=== PATIENT | male | born 1985 | race Caucasian/White ===

== ENCOUNTER 2016-10-19 23:36 | Emergency (ER) | payer OTHER ==
[~2016-10-19] VITALS: Ht 182.9 cm; Wt 122.5 kg
[~2016-10-19 23:36] MED LIST: CEPH500C2 PO; SULF1TAB48 PO
--- NOTE | 2016-10-20 | NUR ---
31 YO MALE BB SELF. PT IS ALERT X 3, PT STATES HE HAS BEEN HVAING BILATERAL LEG SWELLING X 1 MONTH WITH A RASH ON HIS LEFT LEG X 1 MONTH. PT AMBULATED TO ER BED, SKN WARM AND DRY, RR EVEN AND UNLABORED. AWAITING ORDERS FROM PROVIDER, WILL CONTNUE TO MONITOR
[2016-10-20] MEDS ORDERED: FUROSEMIDE 40 MG TABLET ONE (01:16)
[2016-10-20] MEDS ORDERED: SULFAMETH/TRIMETH 800/160 MG 1 UDTAB TABLET PO ONE ×2 (01:16→01:30)
[2016-10-20] MEDS ORDERED: FUROSEMIDE 40 MG TABLET PO ONE (01:30)
[2016-10-20 01:34] LABS: BASOPHILS % (AUTO) 0.5 % (0.0-2.0); EOSINOPHILS # (AUTO) 0.4 /CMM (0.0-0.7); EOSINOPHILS % (AUTO) 4.4 % (0.0-6.0); HEMATOCRIT 38 % (39-51); HEMOGLOBIN 12.9 g/dL (13.5-17.5); LYMPHOCYTES # (AUTO) 3.9 /CMM (0.8-4.8); LYMPHOCYTES % (AUTO) 41.1 % (20.0-44.0); MEAN CORPUSCULAR HEMOGLOBIN 29 PG (26.0-33.0); MEAN CORPUSCULAR HGB CONC 34 g/dl (31.0-36.0); MEAN CORPUSCULAR VOLUME 86 fL (80-96); MONOCYTES # (AUTO) 0.6 /CMM (0.1-1.30); MONOCYTES % (AUTO) 6.5 % (2.0-12.0); NEUTROPHILS # (AUTO) 4.5 /CMM (1.8-8.9); NEUTROPHILS % (AUTO) 47.5 % (43.0-81.0); PLATELET COUNT (AUTO) 293 /CMM (150-450); RDW COEFFICIENT OF VARIATION 13.5 (11.5-15.0); RED BLOOD CELL COUNT(AUTO) 4.47 MIL/uL (4.5-6.0); WHITE BLOOD COUNT (AUTO) 9.4 K/uL (4.3-11.0)
[2016-10-20 01:43] LABS: CALCIUM, SERUM 8.6 mg/dL (8.5-10.1); CARBON DIOXIDE 29 mmol/L (21-32); CHLORIDE 108 mmol/L (98-107); GLUCOSE 108 mg/dL (74-106); POTASSIUM 3.7 mmol/L (3.5-5.1); SODIUM SERUM 144 mmol/L (136-145); UREA NITROGEN, BLOOD 15 mg/dL (7-18)
[2016-10-20 01:51] LABS: TROPONIN I < 0.017 ng/mL (0.00-0.056)
[2016-10-20 01:54] LABS: INR 0.96 (0.87-1.13); PROTHROMBIN TIME 10.2 SECS (9.5-12.7)
[2016-10-20 01:57] LABS: ALANINE AMINOTRANSFERASE 45 U/L (12-78); ALBUMIN 3.1 g/dL (3.4-5.0); ALKALINE PHOSPHATASE 82 U/L (46-116); ASPARTATE AMINOTRANSFERASE 23 U/L (15-37); B-TYPE NATRIURETIC PEPTIDE 52 PG/ML (0-125); BILIRUBIN,DIRECT 0.1 mg/dL (0.0-0.2); BILIRUBIN,TOTAL 0.2 mg/dL (0.2-1.0)
[2016-10-20 02:54] VITALS: BP 138/104
--- NOTE | 2016-10-20 02:54 | NUR ---
Patient discharged to home in stable condition. Written and verbal after care instructions given. Patient verbalizes understanding of instruction. PT ambulatory with a steady gait VITAL SIGNS WITHIN NORMAL LIMITS.
== END 2016-10-20 02:55 | disposition home or self-care (01) ==
LOC: ER 23:36
DX: R60.0 Localized edema (principal); L03.115 Cellulitis of right lower limb; F11.10 Opioid abuse, uncomplicated; G89.29 Other chronic pain; J45.909 Unspecified asthma, uncomplicated; F17.200 Nicotine dependence, unspecified, uncomplicated; G40.909 Epilepsy, unspecified, not intractable, without status epilepticus; Z88.8 Allergy status to other drugs, medicaments and biological substances; Z71.6 Tobacco abuse counseling; Z98.890 Other specified postprocedural states
CPT/HCPCS: 36415; 71010-TC; 80048-TC; 80076-TC; 83880; 84484-TC; 85025-TC; 85730-TC; 93970-TC; A4606; Z7610

== ENCOUNTER 2016-11-24 15:05 | Inpatient (IN) | payer OTHER ==
[~2016-11-24] VITALS: Ht 180.3 cm; Wt 122.5 kg
--- NOTE | 2016-11-24 15:05 | NUR ---
C/O R LOWER LEG CELLULITIS
--- NOTE | 2016-11-24 15:45 | NUR ---
RAC #[id number] IV ACCESS. BLOOD SAMPLE COLLECTED SENT TO LAB
[2016-11-24] MEDS ORDERED: VANCOMYCIN 1 GM in IV D5W 250 ML IV ONE (16:00)
[2016-11-24] MEDS ORDERED: PIPERACILLIN /TAZOBACTAM 3.375 G in IV D5W 50 ML IV ONE (16:00)
--- NOTE | 2016-11-24 16:00 | NUR ---
INFORMATION CODER AT BEDSIDE
[2016-11-24 16:12] LABS: BASOPHILS # (AUTO) 0.1 /CMM (0.0-0.2); EOSINOPHILS # (AUTO) 0.3 /CMM (0.0-0.7); EOSINOPHILS % (AUTO) 2.9 % (0.0-6.0); HEMATOCRIT 42 % (39-51); HEMOGLOBIN 13.8 g/dL (13.5-17.5); LYMPHOCYTES # (AUTO) 2.3 /CMM (0.8-4.8); LYMPHOCYTES % (AUTO) 22.7 % (20.0-44.0); MEAN CORPUSCULAR HEMOGLOBIN 29 PG (26.0-33.0); MEAN CORPUSCULAR HGB CONC 33 g/dl (31.0-36.0); MEAN CORPUSCULAR VOLUME 86 fL (80-96); MONOCYTES # (AUTO) 0.6 /CMM (0.1-1.30); MONOCYTES % (AUTO) 5.7 % (2.0-12.0); NEUTROPHILS # (AUTO) 6.8 /CMM (1.8-8.9); NEUTROPHILS % (AUTO) 67.7 % (43.0-81.0); PLATELET COUNT (AUTO) 348 /CMM (150-450); RDW COEFFICIENT OF VARIATION 12.8 (11.5-15.0); RED BLOOD CELL COUNT(AUTO) 4.86 MIL/uL (4.5-6.0); WHITE BLOOD COUNT (AUTO) 10.1 K/uL (4.3-11.0)
[2016-11-24 16:21] LABS: ALANINE AMINOTRANSFERASE 39 U/L (12-78); ALBUMIN 3.1 g/dL (3.4-5.0); ALKALINE PHOSPHATASE 82 U/L (46-116); ASPARTATE AMINOTRANSFERASE 24 U/L (15-37); BILIRUBIN,DIRECT 0.1 mg/dL (0.0-0.2); BILIRUBIN,TOTAL 0.3 mg/dL (0.2-1.0); CALCIUM, SERUM 8.4 mg/dL (8.5-10.1); CARBON DIOXIDE 27 mmol/L (21-32); CHLORIDE 106 mmol/L (98-107); GLUCOSE 101 mg/dL (74-106); POTASSIUM 4.2 mmol/L (3.5-5.1); SODIUM SERUM 140 mmol/L (136-145); TOTAL PROTEIN, SERUM 7.3 g/dL (6.4-8.2); UREA NITROGEN, BLOOD 12 mg/dL (7-18)
[2016-11-24 16:23] LABS: TROPONIN I < 0.017 ng/mL (0.00-0.056)
[2016-11-24 16:26] LABS: INR 0.96 (0.87-1.13)
[2016-11-24 16:37] LABS: APPEARANCE,URINE Slightly Cloudy (CLEAR)
[2016-11-24 16:38] LABS: BLOOD, URINE NEGATIVE Ery/uL (NEGATIVE); PROTEIN,URINE TRACE mg/dl (NEGATIVE); UGLUCOSE NEGATIVE (NEGATIVE)
[2016-11-24 16:39] LABS: BILIRUBIN,URINE SMALL (NEGATIVE); KETONES,URINE TRACE (NEGATIVE); LEUKOCYTE ESTERASE ,URINE NEGATIVE (NEGATIVE); NITRITE, URINE NEGATIVE (NEGATIVE)
[2016-11-24 16:44] LABS: BACTERIA,URINE None seen /HPF (None Seen); MUCUS,URINE Few /LPF (None Seen); SQUAMOUS EPITHELIAL CELL,UR Few /HPF (None Seen); URINE AMORPHOUS URATE Few /HPF (None Seen); WBC,URINE 0-3 /HPF (0-3)
[2016-11-24 16:45] LABS: COLOR,URINE Dark Yellow (YELLOW)
--- NOTE | 2016-11-24 18:08 | NUR ---
GAVE REPORT TO [facility] ROOM [address] VALLES ADMITTING
--- NOTE | 2016-11-24 18:21 | NUR ---
MS NOTES PATIENT TRANSFERRED FROM ER, ADMITTED FROM HOME. PATIENT IS 31 YEARS OLD, MALE, A/O X4. COOPERATIVE. ON ROOM AIR, TOLERATING WELL, NO SOB. BREATHING EVEN AND NON LABORED. V/S TAKEN AND RECORDED. MADE COMFORTABLE IN BED, NO C/O PAIN AT THIS TIME. PLACE CALL LIGHT WITHIN REACH. WILL ENDORSE TO INCIDENT HANDLER RN TO CONTINUE ADMISSION PROCESS.
[2016-11-24 18:26] VITALS: BP 124/73
[2016-11-24 18:34] VITALS: BP 124/73
--- NOTE | 2016-11-24 18:38 | NUR ---
DIABETIC DIET PER DR. REENA GLOVER. DIETARY DEPT INFORMED.
[2016-11-24] MEDS ORDERED: FEE PK DOSING 1 MIN EA MC ONE (19:30)
--- NOTE | 2016-11-24 20:00 | NUR ---
MS RN NOTE PATIENT STABLE. STATES THAT HE DOES NOT TAKE ANY MEDICATION AT HOME. PICTURES TAKEN OF WOUNDS AND PLACED IN CHART. CLEANSED RIGHT LEG WITH NS, AND PAT DRY. PATIENT IS REFUSING TO HAVE LEG DRESSED. HE STATES THAT HE WANTS IT TO STAY OPEN TO AIR. I EDUCATED PATIENT ON IMPORTANCE OF COVERING WOUND. PATIENT STILL REFUSED. WILL CONTINUE TO MONITOR.
[2016-11-24 20:24] VITALS: BP 125/65
[2016-11-24] MEDS ORDERED: HYDROCODONE/APAP 5/325MG 1 EACH TABLET PO PRN (20:30)
[2016-11-24] MEDS: LEVOFLOXACIN (750 MG) 750 MG TABLET PO SCH (20:34)
[2016-11-24] MEDS: NYSTATIN (PYXIS) 500,000 UNIT/5 ML ORAL.SUSP PO SCH (20:34)
[2016-11-24] MEDS ORDERED: IV NS 0.9% 1,000 ML IV PRN (21:00)
--- NOTE | 2016-11-24 22:00 | NUR ---
MS RN NOTE PATIENT POSITIVE FOR DVT TO RIGHT FEMORAL VEIN. NOTIFIED DR. VALLES WITH NO RESPONSE. NOTIFIED KORIN. AWAITING ORDERS. WILL CONTINUE TO MONITOR.
[2016-11-24] MEDS ORDERED: ENOXAPARIN SODIUM 100 MG/ML DISP.SYRIN SQ ONE (22:25)
[2016-11-24] MEDS: ENOXAPARIN SODIUM 100 MG/ML DISP.SYRIN SQ SCH (22:32)
--- NOTE | 2016-11-24 23:00 | NUR ---
MS RN NOTE NEW ORDERS FOR 100MG LOVENOX RECEIVED AND CARRIED OUT. WILL CONTINUE TO MONITOR.
[2016-11-25] MEDS: VANCOMYCIN 1.5 GM in IV D5W 500 ML IV SCH ×2 (01:20→08:22)
--- NOTE | 2016-11-25 06:30 | NUR ---
MS RN NOTE PATIENT STABLE. WILL ENDORSE TO DAY SHIFT FOR BETH.
--- NOTE | 2016-11-25 07:10 | NUR ---
RN MS NOTES PATIENT ALERT AND ORIENTED, NO DISTRESS NOTED, DENIES PAIN OR DISCOMFORT AT THIS TIME, PIV PATENT AND FLUSHES WELL, IVF INFUSING AND TOLERATING WELL, NEEDS ATTENDED AND ANTICIPATED, BED LOW AND LOCKED, SIDERAILS X2 UP, CALL LIGHT WITHIN REACH, WILL CONTINUE TO MONITOR.
[2016-11-25 08:00] VITALS: BP 103/61
[2016-11-25 08:07] LABS: BASOPHILS # (AUTO) 0.1 /CMM (0.0-0.2); BASOPHILS % (AUTO) 0.6 % (0.0-2.0); EOSINOPHILS # (AUTO) 0.5 /CMM (0.0-0.7); EOSINOPHILS % (AUTO) 5.3 % (0.0-6.0); HEMATOCRIT 40 % (39-51); HEMOGLOBIN 13.8 g/dL (13.5-17.5); LYMPHOCYTES # (AUTO) 2.4 /CMM (0.8-4.8); LYMPHOCYTES % (AUTO) 28.4 % (20.0-44.0); MEAN CORPUSCULAR HEMOGLOBIN 30 PG (26.0-33.0); MEAN CORPUSCULAR HGB CONC 34 g/dl (31.0-36.0); MEAN CORPUSCULAR VOLUME 86 fL (80-96); MONOCYTES # (AUTO) 0.5 /CMM (0.1-1.30); MONOCYTES % (AUTO) 6.2 % (2.0-12.0); NEUTROPHILS # (AUTO) 5.1 /CMM (1.8-8.9); NEUTROPHILS % (AUTO) 59.5 % (43.0-81.0); PLATELET COUNT (AUTO) 309 /CMM (150-450); RDW COEFFICIENT OF VARIATION 13.6 (11.5-15.0); RED BLOOD CELL COUNT(AUTO) 4.68 MIL/uL (4.5-6.0); WHITE BLOOD COUNT (AUTO) 8.5 K/uL (4.3-11.0)
[2016-11-25] MEDS: NYSTATIN (PYXIS) 500,000 UNIT/5 ML ORAL.SUSP PO SCH ×3 (08:23→16:32)
[2016-11-25 08:26] LABS: ALBUMIN 2.8 g/dL (3.4-5.0); BILIRUBIN,TOTAL 0.4 mg/dL (0.2-1.0); CALCIUM, SERUM 8.2 mg/dL (8.5-10.1); CREATININE 0.8 mg/dL (0.6-1.3); MAGNESIUM 1.8 mg/dL (1.8-2.4); POTASSIUM 4.1 mmol/L (3.5-5.1); TOTAL PROTEIN, SERUM 6.9 g/dL (6.4-8.2)
[2016-11-25] MEDS: ENOXAPARIN SODIUM 100 MG/ML DISP.SYRIN SQ SCH (08:30)
--- NOTE | 2016-11-25 08:30 | NUR ---
RN MS NOTES PATIENT SEEN BY DR. SOOD, RECEIVED NEW ORDER FOR NORCO Q6HR PRN FOR PAIN. ORDER NOTED AND CARRIED OUT.
--- NOTE | 2016-11-25 08:41 | NUR ---
WOUND CARE CONSULT: PT PRESENTS WITH PROFOUND EDEMA TO RT LOWER LEG AND FOOT WITH OPEN CRUSTED PURULENT AREAS WHICH ARE NEARLY CIRCUMFERENTIAL. RECOMMENDATIONS MADE FOR WOUND CARE. DISCUSSED WITH NURSING STAFF. PT IS CONTINENT AND AMBULATORY. RECOMMENDATIONS INCLUDING SURGICAL CONSULT DISCUSSED WITH NURSING STAFF AND . WILL SEE PRN. LAM IN AGREEMENT WITH PLAN OF CARE. Addendum: 11/25/16 at [id number] by VITALY ROSENBAUM WNDNU Amended: Links added.
--- NOTE | 2016-11-25 08:58 | NUR ---
RN MS NOTES RELAYED POSITIVE DVT RESULT TO DR. SOOD, PATIENT IS ALREADY ON LOVENOX 100MG Q12H, RECEIVED NO NEW ORDER AT THIS TIME.
[2016-11-25] MEDS ORDERED: PANTOPRAZOLE 40 MG TABLET.DR PO SCH (09:00)
[2016-11-25] MEDS ORDERED: SILVER SULFADIAZINE CREAM 25 GM TUBE TP SCH (09:00)
[2016-11-25] MEDS: HYDROCODONE/APAP 5/325MG 1 EACH TABLET PO PRN ×3 (09:13→21:21)
--- NOTE | 2016-11-25 11:35 | NUR ---
RN MS NOTES RECEIVED A CALL FROM DR. YANG FROM RADIOLOGY RE: DUPLEX VENOUS RESULT, AND RELAYED TO DR. SOOD, RECEIVED NEW ORDER TO REPEAT VENOUS DOPPLER OR RLE TODAY, ORDER NOTED AND CARRIED OUT.
--- NOTE | 2016-11-25 12:05 | NUR ---
Social service consult requested by Dr. Krishna for possible homelessness. Pt. is a 31 year old male who was admitted to [facility] for cellulitis of the leg. VELASQUEZ met with pt. bedside. Pt. is alert and oriented x 4. Pt. appeared guarded when SW was inquiring about his living situation. Pt. states that he lives with roommates at [address] [place] [address] in [place]. VELASQUEZ inquired with pt. regarding his history and physical stating that he lives in a car. Pt. stated that he lived in his car for one night since he got into an argument with his roommate. When VELASQUEZ inquired with pt. if he is able to go back to live with his roommates, pt. stated "yes." Pt. denies using drugs or drinking alcohol. Pt. smokes 1/2 pack of cigarettes per day. Pt. states he has no psychiatric history or diagnosis. Pt. denies suicidal/ homicidal ideations and visual/auditory hallucinations at this time. Pt. receives GR in the amount of $251/ month and food stamps. VELASQUEZ offered pt. resources, however pt. declined. Pt. is his own decision maker. No other social service needs are requested at this time.
[2016-11-25 16:00] VITALS: BP 91/52
[2016-11-25] MEDS ORDERED: VANCOMYCIN 1.25 GM in IV D5W 500 ML IV SCH (16:00)
[2016-11-25] MEDS: VANCOMYCIN 1.25 GM in IV D5W 500 ML IV SCH ×2 (16:32→23:56)
[2016-11-25] MEDS ORDERED: LACTOBACILLUS RHAMNOSUS GG 1 EACH CAP.SPRINK PO SCH (17:00)
--- NOTE | 2016-11-25 18:50 | NUR ---
RN MS NOTES PATIENT ALERT AND ORIENTED, DENIES PAIN AT THIS TIME, NO DISTRESS NOTED, WOUND TREATMENT DONE, ELEVATED BLE, PIV PATENT AND FLUSHES WELL, IVF INFUSING AND TOLERATING WELL, ALL DUE MEDS ADMINISTERED, NEEDS ATTENDED AND MET, CALL LIGHT WITHIN REACH, WILL ENDORSE TO NEXT SHIFT FOR BETH.
--- NOTE | 2016-11-25 18:58 | NUR ---
RN MS NOTES RELAYED VENOUS DOPPLER RESULT WHICH SHOWS NO DVT, TO DR. SOOD AND RECEIVED ORDER TO LOWER LOVENOX DOSE TO PROPHYLAXIS DOSE, ORDER NOTED AND CARRIED OUT.
[2016-11-25 20:00] VITALS: BP 109/58
[2016-11-25] MEDS: LEVOFLOXACIN (750 MG) 750 MG TABLET PO SCH (21:21)
[2016-11-25 22:00] VITALS: BP 109/58
--- NOTE | 2016-11-26 06:15 | NUR ---
MS RN NOTE PATIENT CAME OUT OF ROOM DRESSED, WITH ALL BELONGINGS. STATED THAT HE IS LEAVING NOW. INFORMED PATIENT ON WHY HE IS IN THE HOSPITAL, AND HIS POC FROM THE DOCTOR. PATIENT STATED THAT HE IS LEAVING. PATIENT SIGNED AMA FORM. IV REMOVED, ID BAND REMOVED. PATIENT STATED THAT HE IS GOING TO HIS DAD'S IN HIS CAR. HE DIDNT KNOW THE ADDRESS. APARTMENT MANAGER ESCORTED PATIENT DOWN. MD AWARE.
[2016-11-26] MEDS ORDERED: ENOXAPARIN SODIUM 40 MG/0.4 ML DISP.SYRIN SQ SCH (09:00)
== END 2016-11-26 06:30 | disposition left against medical advice (07) | DRG 383 ==
LOC: ER 15:09 → MED 17:56
PROVIDERS: ADMIT Internal Medicine; ATTEND Internal Medicine
DX: L03.115 Cellulitis of right lower limb (principal); J18.9 Pneumonia, unspecified organism; E44.0 Moderate protein-calorie malnutrition; B37.0 Candidal stomatitis; I82.411 Acute embolism and thrombosis of right femoral vein; D68.59 Other primary thrombophilia; E66.01 Morbid (severe) obesity due to excess calories; Z59.0 Homelessness; J98.11 Atelectasis; I10 Essential (primary) hypertension; J45.909 Unspecified asthma, uncomplicated; F17.200 Nicotine dependence, unspecified, uncomplicated; F11.10 Opioid abuse, uncomplicated; Z88.8 Allergy status to other drugs, medicaments and biological substances; Z98.890 Other specified postprocedural states
CPT/HCPCS: 36415; 71010-TC; 80048-TC; 80053-TC; 80076-TC; 80202-TC; 81000-TC; 83605-TC; 83735-TC; 84100-TC; 84484-TC; 85025-TC; 85730-TC; 87040-TC; 87081-TC; 87086-TC; 93971-TC; A4606; A6253; A6402; J1650; J2543; J3370; J7060; Z7610

== ENCOUNTER 2020-10-24 03:13 | Emergency (ER) | payer OTHER ==
[~2020-10-24] VITALS: Ht 182.9 cm; Wt 158.8 kg
--- NOTE | 2020-10-24 03:15 | NUR ---
PT AAOX4. AMBULATORY WITH STEADY GAIT. BIBSELF C/O LLE REDNESS X1 DAY, CHRONIC RLE REDNESS. PLACED IN BED 9 ON MONITOR AND PULSE OX. VSS.
[2020-10-24 03:42] LABS: BASOPHILS # (AUTO) 0.1 K/uL (0.0-0.2); BASOPHILS % (AUTO) 0.6 % (0.0-2.0); EOSINOPHILS % (AUTO) 6.4 % (0.0-6.0); HEMATOCRIT 37 % (39-51); HEMOGLOBIN 11.9 g/dL (13.5-17.5); LYMPHOCYTES # (AUTO) 2.8 K/uL (0.8-4.8); LYMPHOCYTES % (AUTO) 28.7 % (20.0-44.0); MEAN CORPUSCULAR HGB CONC 32 g/dl (31.0-36.0); MEAN CORPUSCULAR VOLUME 82 fL (80-96); MONOCYTES # (AUTO) 0.6 K/uL (0.1-1.30); MONOCYTES % (AUTO) 6.3 % (2.0-12.0); NEUTROPHILS # (AUTO) 5.7 K/uL (1.8-8.9); PLATELET COUNT (AUTO) 328 K/uL (150-450); RED BLOOD CELL COUNT(AUTO) 4.47 MIL/uL (4.5-6.0); WHITE BLOOD COUNT (AUTO) 9.8 K/uL (4.3-11.0)
[2020-10-24 03:50] LABS: CALCIUM, SERUM 8.3 mg/dL (8.5-10.1); CARBON DIOXIDE 29 mmol/L (21-32); CHLORIDE 104 mmol/L (98-107); CREATININE 1.1 mg/dL (0.6-1.3); GLUCOSE 100 mg/dL (74-106); POTASSIUM 3.7 mmol/L (3.5-5.1); SODIUM SERUM 142 mmol/L (136-145); UREA NITROGEN, BLOOD 14 mg/dL (7-18)
[2020-10-24 04:02] LABS: ALANINE AMINOTRANSFERASE 24 U/L (12-78); ALBUMIN 2.9 g/dL (3.4-5.0); ALKALINE PHOSPHATASE 87 U/L (46-116); ASPARTATE AMINOTRANSFERASE 16 U/L (15-37); BILIRUBIN,DIRECT 0.1 mg/dL (0.0-0.2); BILIRUBIN,TOTAL 0.3 mg/dL (0.2-1.0); TOTAL PROTEIN, SERUM 7.7 g/dL (6.4-8.2)
[2020-10-24] MEDS ORDERED: CEFTRIAXONE 1 G VIAL ONE (04:27)
[2020-10-24] MEDS ORDERED: SULFAMETH/TRIMETH 800/160 MG 1 UDTAB TABLET ONE (04:27)
[2020-10-24] MEDS ORDERED: LIDOCAINE /MPF 1% VIAL 5 ML VIAL ONE (04:27)
[2020-10-24] MEDS ORDERED: CEFTRIAXONE 1 G VIAL IM ONE (04:30)
[2020-10-24] MEDS ORDERED: SULFAMETH/TRIMETH 800/160 MG 1 UDTAB TABLET PO ONE (04:30)
[2020-10-24] MEDS ORDERED: SULF1TAB48 PO (04:38)
[2020-10-24] MEDS ORDERED: CEPH500C2 PO (04:38)
[2020-10-24 05:05] VITALS: BP 131/72
--- NOTE | 2020-10-24 05:05 | NUR ---
Patient discharged to home in stable condition. Written and verbal after care instructions given. Patient verbalizes understanding of instruction and RX. Pt ambulated out of ED. VSS.
== END 2020-10-24 05:06 | disposition home or self-care (01) ==
LOC: ER 03:13
DX: I89.0 Lymphedema, not elsewhere classified (principal); E66.9 Obesity, unspecified; F10.10 Alcohol abuse, uncomplicated; F17.200 Nicotine dependence, unspecified, uncomplicated; R56.9 Unspecified convulsions; J45.909 Unspecified asthma, uncomplicated; Y90.9 Presence of alcohol in blood, level not specified; Z68.42 Body mass index [BMI] 45.0-49.9, adult; Z98.890 Other specified postprocedural states; Z88.8 Allergy status to other drugs, medicaments and biological substances
CPT/HCPCS: 36415; 71045; 80048; 80076; 84484; 85025; 93005; 93970; 96372; 99285; J0696; J3490